=== PATIENT | male | born 1955 | race Caucasian/White ===

== ENCOUNTER 2019-11-17 11:19 | Inpatient (IN) | payer BC ==
[~2019-11-17] VITALS: Ht 180.3 cm; Wt 76.2 kg
[~2019-11-17 11:19] MED LIST: HYDR-1189 PO
[2019-11-17 11:30] VITALS: BP_SYST 169
[2019-11-17 12:21] LABS: BASOPHILS % (AUTO) 0.4 % (0.0-2.0); EOSINOPHILS % (AUTO) 0.8 % (0.0-4.0); HEMATOCRIT 49.3 % (36-54); HEMOGLOBIN 17.1 g/dL (14.0-18.0); LYMPHOCYTES # (AUTO) 0.9 K/uL (1.0-5.5); LYMPHOCYTES % (AUTO) 15.6 % (20.5-51.5); MEAN CORPUSCULAR HEMOGLOBIN 33 pg (27-31); MEAN CORPUSCULAR HGB CONC 35 % (32-36); MEAN CORPUSCULAR VOLUME 96 fL (79.0-98.0); MONOCYTES # (AUTO) 0.3 K/uL (0.0-1.0); MONOCYTES % (AUTO) 4.8 % (1.7-9.3); NEUTROPHILS # (AUTO) 4.5 K/uL (1.8-7.7); NEUTROPHILS % (AUTO) 78.4 % (40.0-70.0); PLATELET COUNT (AUTO) 251 K/uL (130-430); RED BLOOD CELL COUNT(AUTO) 5.16 MIL/uL (4.2-6.2); RED CELL DISTRIBUTION WIDTH 13.2 % (9.0-15.0); WHITE BLOOD COUNT (AUTO) 5.8 K/uL (4.8-10.8)
[2019-11-17 12:33] LABS: CALCIUM 9.3 mg/dL (8.4-11.0); CREATININE 0.75 mg/dL (0.55-1.30); POTASSIUM 3.6 mmol/L (3.5-5.1)
[2019-11-17 12:36] LABS: PROTHROMBIN TIME 10.1 SECS (9.5-12.5)
[2019-11-17 12:39] LABS: ALBUMIN 3.5 g/dL (3.4-4.8); TOTAL BILIRUBIN 0.6 mg/dL (0.0-1.0)
[2019-11-17 12:47] LABS: C-REACTIVE PROTEIN QUANT 8.2 mg/dL (0-0.5)
[2019-11-17 13:03] LABS: ERYTHROCYTE SEDIMENTATION RATE 20 MM/HR (0-15)
[2019-11-17] MEDS ORDERED: IBUPROFEN 600 MG TABLET PO ONE (17:15)
[2019-11-17] MEDS ORDERED: IBUPROFEN 600 MG TABLET ONE (17:34)
[2019-11-17 18:00] VITALS: BP_SYST 144
[2019-11-17 18:23] VITALS: BP_SYST 144
[2019-11-17 20:00] VITALS: BP_SYST 138
[2019-11-17] MEDS: IBUPROFEN 800 MG TABLET PO PRN (21:38)
[2019-11-17] MEDS ORDERED: ONDANSETRON HCL 4 MG/2 ML VIAL IVP PRN (23:15)
[2019-11-17] MEDS ORDERED: LORazepam 2 MG/ML VIAL IVP PRN (23:15)
[2019-11-17] MEDS ORDERED: HYDROcodone/ACETAMIN 5-325 MG TAB (NORCO/ VICODIN) PO PRN (23:15)
[2019-11-17] MEDS ORDERED: HYDROcodone/ACETAMIN 10-325 MG TAB PO PRN (23:15)
[2019-11-18 00:41] VITALS: BP_SYST 122
[2019-11-18] MEDS: NORMAL SALINE 5 ML DISP.SYRIN IVF SCH ×2 (05:12→14:23)
[2019-11-18] MEDS: IBUPROFEN 800 MG TABLET PO PRN (05:40)
[2019-11-18 05:47] LABS: BASOPHILS % (AUTO) 0.5 % (0.0-2.0); EOSINOPHILS # (AUTO) 0.2 K/uL (0.0-0.4); EOSINOPHILS % (AUTO) 3.1 % (0.0-4.0); HEMATOCRIT 45.3 % (36-54); HEMOGLOBIN 15.4 g/dL (14.0-18.0); LYMPHOCYTES # (AUTO) 1.1 K/uL (1.0-5.5); LYMPHOCYTES % (AUTO) 18.6 % (20.5-51.5); MEAN CORPUSCULAR HEMOGLOBIN 33 pg (27-31); MEAN CORPUSCULAR HGB CONC 34 % (32-36); MEAN CORPUSCULAR VOLUME 96 fL (79.0-98.0); MONOCYTES # (AUTO) 0.5 K/uL (0.0-1.0); MONOCYTES % (AUTO) 8.4 % (1.7-9.3); NEUTROPHILS # (AUTO) 4.2 K/uL (1.8-7.7); NEUTROPHILS % (AUTO) 69.4 % (40.0-70.0); PLATELET COUNT (AUTO) 245 K/uL (130-430); RED BLOOD CELL COUNT(AUTO) 4.72 MIL/uL (4.2-6.2); RED CELL DISTRIBUTION WIDTH 13.3 % (9.0-15.0)
[2019-11-18 06:07] LABS: CALCIUM 8.7 mg/dL (8.4-11.0); CREATININE 0.73 mg/dL (0.55-1.30)
[2019-11-18 08:00] VITALS: BP_SYST 133
[2019-11-18] MEDS ORDERED: CILOSTAZOL 50 MG TABLET (PLETAL) PO SCH (09:00)
[2019-11-18 09:15] LABS: CHOLESTEROL 135 mg/dL (<200); HDL CHOLESTEROL 39 mg/dL (>45); LDL CHOLESTEROL 79 mg/dL (<100); TRIGLYCERIDES 48 mg/dL (30-150)
[2019-11-18] MEDS ORDERED: IOHEXOL 350 mgI/mL, 150 ML INFUS..BTL IV ONE (10:40)
[2019-11-18] MEDS ORDERED: PIPERACILLIN/TAZO 3.375/DEX-IS 50 ML IV SCH (14:00)
[2019-11-18 14:50] VITALS: BP_SYST 142
[2019-11-18 15:07] VITALS: BP_SYST 142
== END 2019-11-18 16:00 | disposition short-term general hospital (02) | DRG 300 ==
LOC: SED 11:19 → SMU 16:59
PROVIDERS: ADMIT Preventive Medicine Preventive Medicine/Occupational Environmental Medicine; ATTEND Preventive Medicine Preventive Medicine/Occupational Environmental Medicine
DX: I73.9 Peripheral vascular disease, unspecified (principal); E87.1 Hypo-osmolality and hyponatremia; F17.210 Nicotine dependence, cigarettes, uncomplicated; I10 Essential (primary) hypertension; R73.03 Prediabetes; R74.0 Nonspecific elevation of levels of transaminase and lactic acid dehydrogenase [LDH]; Z79.84 Long term (current) use of oral hypoglycemic drugs
CPT/HCPCS: 36415; 73706; 80048; 80053; 80061; 83036; 85025; 85610-TC; 85651-TC; 86140; 93922; 99285; J2543; Q9967